=== PATIENT | male | born 1950 | race Hispanic/Latino ===

== ENCOUNTER → 2019-07-16 | Outpatient (CLI) | payer MEDICARE ==
[~2019-07-16] VITALS: Ht 177.8 cm; Wt 94.3 kg
[~2019-07-16] MED LIST: ASPI-555 PO; LISI2.5T2 PO; REGADENOSON 0.4 MG/5 ML PF SYG IVP SCH; ROSU20TA31 PO; SAXA1TBM3 PO; TICA90TA PO; TUJEO SQ
== END | disposition home or self-care (01) ==
LOC: SHCH 07:49
PROVIDERS: ATTEND Internal Medicine Cardiovascular Disease
DX: R06.09 Other forms of dyspnea (principal)
CPT/HCPCS: 78452; 93017; 96374; A9500 ×2; J2785

== ENCOUNTER 2019-08-13 08:42 | Day surgery (SDC) | payer MEDICARE ==
[2019-08-11 15:28] LABS: APPEARANCE,URINE Clear (CLEAR); BILIRUBIN,URINE Negative (NEGATIVE); COLOR,URINE Yellow (YELLOW); GLUCOSE, URINE (UA) >=1000 mg/dL (NEGATIVE); KETONES,URINE Trace mg/dL (NEGATIVE); LEUKOCYTE ESTERASE ,URINE Negative (NEGATIVE); NITRATE,URINE Negative (NEGATIVE); OCCULT BLOOD,URINE Negative (NEGATIVE); PROTEIN,URINE Negative (NEGATIVE); UROBILINOGEN,URINE 0.2 mg/dL (0.2-1.0)
[2019-08-11 15:29] VITALS: BP 138/65
[2019-08-11 15:44] LABS: EOSINOPHILS % (AUTO) 5.4 % (0.0-8.0); HEMATOCRIT 47.2 % (42-54); LYMPHOCYTES % (AUTO) 29.2 % (21.0-51.0); MEAN CORPUSCULAR HEMOGLOBIN 28.9 pg (27.0-33.0); MEAN CORPUSCULAR HGB CONC 32.6 g/dL (32.0-36.0); MEAN CORPUSCULAR VOLUME 88.6 fL (79-99); MONOCYTES % (AUTO) 8.9 % (3.0-13.0); NEUTROPHILS % (AUTO) 55.2 % (40.0-77.0); PLATELET COUNT (AUTO) 172 K/uL (130-400); RED BLOOD CELL COUNT(AUTO) 5.33 MIL/uL (4.50-6.20); WHITE BLOOD COUNT (AUTO) 6.9 K/uL (4.8-10.8)
[2019-08-11 15:57] LABS: BACTERIA,URINE Rare /HPF (None Seen); MUCUS,URINE Few LPF (None Seen); RBC,URINE 0-1 /HPF (0-1); SQUAMOUS EPITHELIAL CELL,UR 0-2 /HPF (0-2); WBC,URINE 0-1 /HPF (0-1)
[2019-08-11 16:16] LABS: INR 1.03 (0.85-1.15); PROTHROMBIN TIME 10.8 SEC (9.6-11.6)
[2019-08-11 16:20] LABS: CREATININE 1.2 mg/dL (0.5-1.5); POTASSIUM 4.3 mmol/L (3.5-5.1)
[2019-08-11 16:26] LABS: PARTIAL THROMBOPLASTIN TIME 25.2 SEC (26.3-35.5)
--- NOTE | 2019-08-12 15:20 | NUR ---
CHEST X RAY CHEST X RAY RESULT REPORTED TO SHARMILA MARTINEZ. NO FURTHER ORDERS GIVEN, MAY PROCEED WITH PLANNED PROCEDURE.
[2019-08-13] VITALS (8 sets, daily range): BP systolic 128–155; BP diastolic 64–86
[~2019-08-13] VITALS: Ht 176.5 cm; Wt 94.7 kg
[~2019-08-13 08:42] MED LIST changes: +EMPA10TA PO; +INSU300I SQ; -LISI2.5T2 PO; +PIND10TA2 PO; -REGADENOSON 0.4 MG/5 ML PF SYG IVP SCH; -SAXA1TBM3 PO; +SODIUM CHLORIDE 0.9% 1000ML 1,000 ML IV ONE; -TICA90TA PO; -TUJEO SQ
[2019-08-13] MEDS ORDERED: PINDOLOL PO (09:26)
[2019-08-13] MEDS ORDERED: LIDOCAINE HCL 2% 20ML ONE (11:36)
[2019-08-13] MEDS ORDERED: IOHEXOL-350 75 ML VIAL IV ONE (11:36)
[2019-08-13] MEDS ORDERED: HEPARIN SODIUM 1000UNIT/ML 10ML VIAL ONE (11:36)
[2019-08-13] MEDS ORDERED: IOHEXOL 350 MG/ML 100ML INFUS..BTL IV ONE (11:36)
[2019-08-13] MEDS ORDERED: NITROGLYCERIN 5 MG/ML 10 ML VIAL IV ONE (11:37)
[2019-08-13] MEDS ORDERED: NICARDIPINE HCL 25 MG/10 ML ML IV ONE (11:39)
[2019-08-13] MEDS ORDERED: BIVALIRUDIN 250 MG/VIAL IV ONE (11:43)
--- NOTE | 2019-08-13 11:50 | NUR ---
PROCEDURE PT TAKEN TO FORGE OPERATOR FOR SCHEDULED PROCEDURE. FAMILY AT BEDSIDE
--- NOTE | 2019-08-13 13:35 | NUR ---
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 s/p lhc, right groin with perclose closure device ,dressing dry and intact, no bleeding or hematoma to site. vs stable. family at bedside. plan of care discuss with pt/ spouse. call light within reach
--- NOTE | 2019-08-13 15:30 | NUR ---
report report given to Tami Winkler RN to resume care of patient patient awake and alert in bed,no distress noted. denied any pain or discomforts. patient sitting up in chair, spouse at bedside. call light within reach.
--- NOTE | 2019-08-13 17:06 | NUR ---
PT AAOX3 , RT GROIN D/I NO BLEEDING OR HEMATOMA, POST CARE INSTRUCTIONS GIVEN TO PT AND , BOTH VERBALIZED INSTRUCTIONS. PT STABLE, NO DISTRESS.
== END 2019-08-13 17:06 | disposition home or self-care (01) ==
LOC: DAH 08:42
PROVIDERS: ATTEND Internal Medicine Cardiovascular Disease
DX: I25.10 Atherosclerotic heart disease of native coronary artery without angina pectoris (principal); R94.39 Abnormal result of other cardiovascular function study; I10 Essential (primary) hypertension; E11.9 Type 2 diabetes mellitus without complications; E78.5 Hyperlipidemia, unspecified; Z79.899 Other long term (current) drug therapy; Z95.1 Presence of aortocoronary bypass graft; Z72.89 Other problems related to lifestyle; Z87.891 Personal history of nicotine dependence; Z91.048 Other nonmedicinal substance allergy status; Z79.4 Long term (current) use of insulin; Z79.82 Long term (current) use of aspirin; Z82.49 Family history of ischemic heart disease and other diseases of the circulatory system; Z83.3 Family history of diabetes mellitus; Z79.01 Long term (current) use of anticoagulants
CPT/HCPCS: 36415; 71045; 80048; 81001; 82948 ×3; 85025; 85610; 85730; 93005; 93459; A4215; A4216; A4221; A4222; A4223 ×3; A4606; A4663; C1760; C1769; C1894 ×3; J1644; J3490 ×3; J7030; Q9965 ×2; Q9967 ×2; J0583

== ENCOUNTER → 2024-04-08 | Outpatient (CLI) | payer OTHER ==
[~2024-04-08] MED LIST changes: -ASPI-555 PO; +ASPI-556 PO; -PIND10TA2 PO; +PINDOLOL PO; -ROSU20TA31 PO; +ROSU20TA73 PO; -SODIUM CHLORIDE 0.9% 1000ML 1,000 ML IV ONE
== END | disposition home or self-care (01) ==
LOC: LAB 08:06
PROVIDERS: ATTEND Internal Medicine Cardiovascular Disease
DX: I12.9 Hypertensive chronic kidney disease with stage 1 through stage 4 chronic kidney disease, or unspecified chronic kidney disease (principal); E78.2 Mixed hyperlipidemia; E55.9 Vitamin D deficiency, unspecified; N18.9 Chronic kidney disease, unspecified
CPT/HCPCS: 82306